=== PATIENT | female | born 1965 | race African-American/Black ===

== ENCOUNTER 2019-09-05 10:23 | Inpatient (IN) | payer OTHER ==
[~2019-09-05] VITALS: Ht 170.2 cm; Wt 80.1 kg
[2019-09-05 11:39] LABS: ABSOLUTE NEUTROPHILS 5.3 thou/uL (1.4-8.2); BASOPHILS 0.7 % (0.0-2.0); EOSINOPHILS 4.7 % (0.0-3.0); HEMATOCRIT 38.5 % (37.0-47.0); HEMOGLOBIN 12.7 gm/dL (12.0-15.0); LYMPHOCYTES 29.9 % (24.0-44.0); MCH 28.6 pg (26.0-34.0); MCV 86.5 fL (80.0-100.0); MONOCYTES 8.2 % (1.0-8.0); POLYS 56.5 % (36.0-66.0); RBC 4.46 mil/uL (4.20-5.00); RDW 13.9 % (10.5-14.5); WBC 9.4 thou/uL (4.0-11.0)
[2019-09-05 11:41] LABS: PLATELET COUNT 316 thou/uL (150-400)
[2019-09-05 11:47] LABS: ANION GAP 11 mmol/L (7-16); BUN 9 mg/dL (7-18); CHLORIDE 102 mmol/L (98-107); CO2 24 mmol/L (21-32); CREATININE 0.8 mg/dL (0.6-1.0); GLUCOSE 92 mg/dL (74-106); POTASSIUM 3.8 mmol/L (3.5-5.1); SODIUM 137 mmol/L (136-145)
[2019-09-05 11:51] LABS: APTT 25.8 Seconds (24.5-32.8); PROTIME 10.3 Seconds (9.3-11.4)
[2019-09-05 11:57] LABS: ALBUMIN 4.1 g/dL (3.4-5.0); SGOT 27 U/L (15-37); SGPT 18 U/L (30-65); TOTAL BILIRUBIN 0.6 mg/dL (<0.1-1.0); TOTAL PROTEIN 8.1 g/dL (6.4-8.2); TROPONIN-I <0.06 ng/mL (<0.06)
[2019-09-05 13:13] VITALS: BP 183/110
[2019-09-05 14:05] VITALS: BP 148/106
[2019-09-05 14:15] VITALS: BP 150/115
--- NOTE | 2019-09-05 15:26 | 2DMMODE ---
[facility] [address] [place] [address] 2 D/M-MODE ECHOCARDIOGRAM Name: ALLISON MAY Room #: 210-P [facility] IN .R.#: [id number] Admission: 09/05/19 Attend Phys: Kalpesh Gupta MD Discharge: Date of : 69 Report #: [id number] THIS REPORT FOR: //name// APPROVED REPORT Study performed: 09/05/2019 14:36:09 EXAM: Comprehensive 2D, Doppler, and color-flow Echocardiogram Patient Location: Echo lab Room #: 210 Status: routine BSA: 1.91 HR: 84 bpm BP: 148/106 mmHg Rhythm: NSR Other Information Study Quality: Good Indications CVA/TIA Hypertension/HDD Echo Enhancing Agent Indication: Rule out Shunt Agent(s) / Amount(s) Used: Agitated Saline 7 cc 2D Dimensions RVDd: 31.33 mm IVSd: 10.54 (7-11mm) LVOT Diam: 19.49 (18-24mm) LVDd: 41.53 mm PWd: 10.66 (7-11mm) LVDs: 28.28 (25-40mm) Aortic Root: 30.50 mm IVC: 18.00 mm Volumes Left Atrial Volume (Systole) Single Plane 4CH: 41.04 mL Single Plane 2CH: 54.71 mL LA ESV Index: 29.00 mL/m2 Aortic Valve AoV Peak Steve.: 1.53 m/s AO Peak Gr.: 9.31 mmHg LVOT Max P.22 mmHg LVOT Max V: 1.25 m/s NICOLE Vmax: 2.44 cm2 [facility] [address] [address] 2 D/M-MODE ECHOCARDIOGRAM Name: ALLISON MAY Room #: 210-P [facility] IN ..#: [id number] Admission: 09/05/19 Attend Phys: Kalpesh Gupta MD Discharge: Date of : 69 Report #: [id number] Mitral Valve E/A Ratio: 0.9 MV Decel. Time: 256.47 ms MV E Max Steve.: 0.59 m/s MV A Steve.: 0.69 m/s MV PHT: 74.38 ms IVRT: 101.50 ms Pulmonary Valve PV Peak Steve.: 0.71 m/s PV Peak Gr.: 1.99 mmHg Pulmonary Vein P Vein S: 0.65 m/s P Vein A: 0.24 m/s P Vein D: 0.36 m/s P Vein A Dur.: 106.1 msec P Vein S/D Ratio: 1.81 Left Ventricle The left ventricle is normal size. There is normal LV segmental wall motion. There is normal left ventricular wall thickness. Left ventricular systolic function is normal. The left ventricular ejection fraction is within the normal range. LVEF is 55-60%. Grade I - abnormal relaxation pattern. Right Ventricle The right ventricle is normal size. The right ventricular systolic function is normal. Atria The left atrium size is normal. Interatrial septum is intact without evidence of ASD or PFO. The right atrium size is normal. Aortic Valve The aortic valve is normal in structure. No aortic regurgitation is present. There is no aortic valvular stenosis. Mitral Valve The mitral valve is normal in structure. There is no mitral valve regurgitation noted. No evidence of mitral valve stenosis. Tricuspid Valve The tricuspid valve is normal in structure. There is no tricuspid valve regurgitation noted. Pulmonic Valve The pulmonary valve is normal in structure. There is no pulmonic [facility] [address] [place] [address] 2 D/M-MODE ECHOCARDIOGRAM Name: ALLISON MAY Room #: 210-P [facility] IN M.R.#: [id number] Admission: 09/05/19 Attend Phys: Kalpesh Gupta MD Discharge: Date of : 69 Report #: [id number] valvular regurgitation. Great Vessels The aortic root is normal in size. IVC is normal in size and collapses >50% with inspiration. Pericardium There is no pericardial effusion. <Conclusion> The left ventricle is normal size. LVEF is 55-60%. The aortic valve is normal in structure. The mitral valve is normal in structure. The tricuspid valve is normal in structure. The pulmonary valve is normal in structure. There is no pericardial effusion. Interatrial septum is intact without evidence of ASD or PFO. <ELECTRONICALLY SIGNED> By: Thad Mcwilliams MD 09/05/19 1526 1526 1526 Thad Mcwilliams MD /INF
[2019-09-05 16:23] VITALS: BP 169/118
[2019-09-05 16:25] VITALS: BP 172/117
--- NOTE | 2019-09-05 18:51 | NUR ---
ASSUMMED PT CARE AT APPROXIMATELY 1415. PT A&O X4. ASSESSMENT CHARTED. FALL PRECAUTIONS IN PLACE. PT DENIES HAVING CHEST PAIN. PT DENIES HAVING SOB. PT DENIES HAVING ACUTE PAIN. PT STATED SHE HAD VERTIGO. NOTIFIED AND ADDED NEW ORDERS. NEW ORDERS IMPLEMENTED. PT STATED MEDICATION RELEIVED VERTIGO. VITAL SIGNS STABLE. PT COMFORTABLE IN BED. PT DENIES HAVING FURTHER CONCERNS. ADMISSION COMPLETE.
[2019-09-05 20:09] VITALS: BP 142/108
[2019-09-06] VITALS (7 sets, daily range): BP systolic 132–159; BP diastolic 76–116
[2019-09-06 00:06] LABS: GLYCOHEMOGLOBIN (HGB A1C) 5.4 % (4.8-5.6)
--- NOTE | 2019-09-06 05:00 | NUR ---
Assumed care at 1900. pt alert and oriented. admitted for possible stroke. q4 NIH assessment scores 1,0,0 respectively. Denies chest pain, nausea, vomitng, blurred vision or headache. Bp fairly controlled but still running diastolic >100. 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 Currently just monitoring PT. PT had a shower. no further c/o. will continue to monitor
[2019-09-06 06:03] LABS: BASOPHILS 0.8 % (0.0-2.0); EOSINOPHILS 5.9 % (0.0-3.0); HEMOGLOBIN 12.8 gm/dL (12.0-15.0); MCH 28.6 pg (26.0-34.0); MCHC 32.9 g/dL (28.0-37.0); MCV 86.9 fL (80.0-100.0); MONOCYTES 8.7 % (1.0-8.0); PLATELET COUNT 307 thou/uL (150-400); POLYS 46.6 % (36.0-66.0); RBC 4.49 mil/uL (4.20-5.00); RDW 13.9 % (10.5-14.5); WBC 6.4 thou/uL (4.0-11.0)
[2019-09-06] MEDS ORDERED: SERTRALINE HCL100 MG PO (06:17)
[2019-09-06] MEDS ORDERED: LOSARTAN POTASS50 MG PO (06:19)
[2019-09-06] MEDS ORDERED: CYCLOBENZAPRINE10 MG PO (06:21)
[2019-09-06] MEDS ORDERED: PRAVACHOL 20 MG20 M1 PO (06:23)
[2019-09-06] MEDS ORDERED: TIZANIDINE HCL 22 M1 PO (06:25)
[2019-09-06] MEDS ORDERED: TRAZODONE HCL100 MG PO (06:26)
[2019-09-06 06:35] LABS: ANION GAP 9 mmol/L (7-16); BUN 11 mg/dL (7-18); CALCIUM 9.1 mg/dL (8.5-10.1); CHLORIDE 103 mmol/L (98-107); CHOLESTEROL 215 mg/dL (<200); CO2 25 mmol/L (21-32); CREATININE 0.8 mg/dL (0.6-1.0); GLUCOSE 87 mg/dL (74-106); HDL CHOLESTEROL 50 mg/dL (>40); LDL CHOLESTEROL 129 mg/dL (<100); MAGNESIUM 2.3 mg/dL (1.8-2.4); POTASSIUM 3.9 mmol/L (3.5-5.1); SODIUM 137 mmol/L (136-145); TC:HDL 4.3 Ratio (Not establshd); TRIGLYCERIDE 180 mg/dL (<150); VLDL 36 mg/dL (<40)
[2019-09-06] MEDS ORDERED: OMEPRAZOLE 20 M20 M1 PO (06:36)
[2019-09-06 06:38] LABS: SERUM ASSESSMENT Clear
--- NOTE | 2019-09-06 13:08 | NUR ---
OT ORDERS RECEIVED. UPON ARRIVAL, Pt UP AD NEHA IN ROOM AND REPORTS THAT SYMPTOMS HAVE SUBSIDED. SHE REPORTS AND DEMONSTRATES TO BE BACK AT BASELINE OF INDEPENDENT WITH ADLS AND FUNCTIONAL TRANSFERS. REFUSED FORMAL OT EVALUATION. Pt AND RN EDUCATED THAT IF STATUS OF Pt CHANGES TO REORDER OT EVALUATION.
[2019-09-06] MEDS ORDERED: ANTIVERT25 MG PO (13:27)
[2019-09-06] MEDS ORDERED: ASPIR 8181 MG PO (13:27)
--- NOTE | 2019-09-06 15:25 | NUR ---
ASSUMED CARE OF PT AT SHIFT CHANGE. ASSESSMENT CHARTED. MEDS GIVEN PER DEC. PT A&OX4. NO C/O PAIN, N/V OR DIZZYNESS. PT STATED FEELING BETTER. DISCHARGE ORDERS AND INSTRUCTIONS COMPLETE. TELE AND IV DC'D. PT HAD ALL BELONGINGS. WALKED PT TO ER MAIN DOOR.
--- NOTE | 2019-09-08 07:34 | EKG ---
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
== END 2019-09-06 17:10 | disposition home or self-care (01) | DRG 69 ==
LOC: ER 10:23 → EROBS 12:57 → 2N 14:02
PROVIDERS: Emergency Medicine; Nurse Practitioner; ADMIT Hospitalist
DX: G45.9 Transient cerebral ischemic attack, unspecified (principal); I10 Essential (primary) hypertension; F32.9 Major depressive disorder, single episode, unspecified; Z79.82 Long term (current) use of aspirin; Z79.899 Other long term (current) drug therapy
CPT/HCPCS: 10081